=== PATIENT | female | born 1990 | race African-American/Black ===

== ENCOUNTER 2016-12-03 12:48 | Inpatient (IN) ==
[2016-12-03] MEDS ORDERED: SODIUM CHLORIDE 0.9% 1,000 ML IV STA (14:28)
[2016-12-03] MEDS ORDERED: ONDANSETRON 4 MG/2 ML VIAL IV STA (14:28)
--- NOTE | 2016-12-03 14:32 | Emergency Department Note ---
Arrival - Arrival Chief Complaint: Abdominal / Flank Pain Stated Complaint: nausea,stomach pain,back pain,third visit to ER ED Nursing Triage Note: pt to triage via [facility] with c/o having abd pain with n/v. pt states onset on 11/23/2016. pt was seen here on 11/26/16 and was given prescriptions for pain and then went to [facility] on 11/[facility]/16 and was prescriptions for nausea and some others. pt states she was told she was constipated. Mode of Arrival: Wheelchair Time Seen by Provider: 12/03/16 14:20 - History of Present Illness HPI Narrative: Patient presents to the ER today with complaints of upper left quadrant abdominal pain, nausea, and vomiting. She was seen here on 11/26 and was told she was constipated. She was seen at [facility] on 11/29 for the same thing. She states she has tried everything over the counter and has had BMs but the pain has not gone away. She states she is unable to anything down and now she is dizzy when she stands up. She denies fever. She states she does smoke and drink ETOH. PCP- none Allergies- PCN PMHx- none Date of Last Menstrual Period: 11/23/2016 Allergies/Adverse Reactions: Allergies Allergy/AdvReac Type Severity Reaction Status Date / Time Penicillins Allergy HIVES Verified 12/03/16 12:55 Home Medications: Home Medications Medication Instructions Recorded Confirmed Type Sulfameth/Trimeth 800-160 Tab 1 tablet PO BID #14 tablet 11/26/16 Rx [Bactrim DS Tab] traMADol TAB [Ultram] 50 mg PO Q6H PRN #20 tablet 11/26/16 Rx Review of System - Review of System 12 point system: reviewed and no additional remarkable complaints except as stated - Review of System Constitutional: Absent: chills, fever Respiratory: Absent: cough Cardiovascular: Absent: chest pain Gastrointestinal: Present: abdominal pain (left upper quadrant), nausea, vomiting (3 times today ) Medical,Surgical,& Family Hx - Social History Smoking Status: Current every day smoker Frequency of Alcohol Use: None Type of Drug Use: None Exam Physical Examination: General General appearance: 26-year-old black female is alert and in no apparent distress - Head Head exam: Present: atraumatic, normocephalic, normal inspection - Eye Eye exam: Present: normal appearance, PERRL, EOMI - ENT ENT exam: Present: mucous membranes tacky - Neck Neck exam: Present: normal inspection, full ROM, trachea midline - Chest Chest inspection: Present: normal inspection, symmetric chest wall rise - Respiratory Respiratory exam: Present: normal lung sounds bilaterally - Cardiovascular Cardiovascular exam: Present: regular rate, normal rhythm, normal heart sounds - Abdominal Exam Abdominal exam: Present: soft, normal bowel sounds, tender to left upper quadrant and left flank, no masses felt - Rectal Exam Rectal exam: Present: deferred - Extremities Exam Extremities exam: Present: normal inspection, full ROM, normal capillary refill - Back Exam Back exam: Present: normal inspection, full ROM - Neurological Exam Neurological exam: Present: alert, oriented X3, CN II-XII intact - Psychiatric Psychiatric exam: Present: normal affect, normal mood - Skin Skin exam: Present: warm, dry, intact, normal color, Vital Signs: Vital Signs Temperature 97.6 F 12/04/16 11:38 Pulse Rate 96 H 12/04/16 11:38 Respiratory Rate 18 12/04/16 11:38 Blood Pressure 135/78 12/04/16 11:38 O2 Sat by Pulse Oximetry 100 12/04/16 11:38 Course - Reevaluation(s) Time: 17:17 (Lab and CT results reviewd with Dr. Deng who states it looks viral in nature and he thinks this patient is okay to go home on antibiotics ( for UTI) and nausea medication. Patient is refusing discharge, she states she is still nauseated and does not feel any better. We discussed some treatment options and she agreed to try the GI cocktail and protonix to see if it would help. ) Time: 18:01 (Patient states she is still nauseous, hospitalist consulted) Time: 18:15 (Hospitalist at bedside and states she will admit the patient) Results - Labs CBC & BMP: 12/04/16 04:43 12/04/16 04:43 Lab Results: I have reviewed the patients labs Labs: Laboratory Tests 12/03/16 14:36 WBC 15.2 H RBC 5.40 Hgb 15.7 Hct 44.5 MCV 82.4 L MCH 29 MCHC 35.3 RDW 11.9 Plt Count 298 MPV 12.3 H Lymph % (Auto) 16.5 L Neut # (Auto) 11.0 H Faulk # (Auto) 1.5 H Laboratory Tests 12/03/16 12/03/16 14:36 14:36 Sodium 135 L Potassium 3.4 L Chloride 99 Carbon Dioxide 27 Anion Gap 12.4 BUN 11 Creatinine 1.10 H GFR Calculation 87 BUN/Creatinine Ratio 10.00 Glucose 104 Calculated Osmolality 268.1 L Calcium 9.7 Total Bilirubin 1.20 H AST 31 ALT 39 Alkaline Phosphatase 127 H Total Protein 9.6 H Albumin 4.2 Globulin 5.4 H Albumin/Globulin Ratio 0.7 L Amylase 102 Lipase 407.0 H Laboratory Tests 12/03/16 12/03/16 14:29 14:29 Urine Color Yellow Urine Appearance Clear Urine pH 6.0 Ur Specific Romney 1.016 Urine Protein 100 Urine Glucose (UA) 50 Urine Ketones Negative Urine Blood Large Urine Nitrate Negative Urine Bilirubin Negative Urine Urobilinogen 2.0 H Urine Leukocytes Trace Urine RBC 25 Urine WBC 5 Ur Squamous Epith Cells Occasional Urine Mucus Occasional Ur Culture Indicated? Not indicated Urine Test Negative Laboratory Tests 12/03/16 14:36 Infectious Faulk Assay Negative - Impressions Ordering Physician: Carolina Sparrow NP Date of Service: 12/03/16 Procedure(s): CT abdomen pelvis w con Accession Number(s): [id number] cc: Carolina Sparrow PERSONNEL PLACEMENT SPECIALIST~ Referring physician: Carolina Sparrow NP EXAM: CT abdomen and pelvis with contrast DATE: 12/03/2016 COMPARISON: None REASON: Upper abdominal pain, nausea and vomiting TECHNIQUE: Axial images of the abdomen and pelvis were obtained after administration of 100 cc of Omnipaque 350 IV contrast. Oral contrast was also administered. Coronal and sagittal reformatted images were also provided. Total DLP is 620.10 mGy*cm. FINDINGS: No acute findings at the visualized lung bases. Fatty infiltration of the liver which is normal in size with no masses, dilated ducts or calcified gallstones. The spleen is enlarged with a splenic index of 708. The pancreas, adrenal glands, and kidneys have an unremarkable appearance. The abdominal aorta is normal in size with no adjacent adenopathy. No dilatation of the small bowel. No evidence of diverticulitis, appendicitis, free fluid, or free air. Small cysts/follicles in the ovaries with the largest measuring 15 mm on the left. IMPRESSION: Fatty infiltration of the liver. Minimal splenomegaly with a splenic index of 708. No evidence of appendicitis. Small cysts/follicles in the ovaries with the largest measuring 15 mm on the left. The CT exam was performed using one or more of the following dose reduction techniques: Automated exposure control and adjustment of the mA and/or kV according to patient size. PROCEDURE INTERPRETED AT [facility] [place] DEPARTMENT OF RADIOLOGY Final Report Signed by: Dr. Kathryn Duff - Diagnostic Findings Procedure: CT Abdomen and Pelvis: report reviewed by me, image reviewed by me ( See Impression ) Disposition Clinical Impression: UTI (urinary tract infection), Nausea & vomiting, Dehydration, Abdominal pain, Splenomegaly Case discussed with: patient, patient's family Disposition: Still a Patient Condition: Stable Time of Disposition: 16:56
[2016-12-03 14:52] LABS: Apearance,Urine CLEAR (Clear); Bilirubin,Urine Negative (Negative); Blood, Urine Large mg/dL (Negative); Glucose,Urine (UA) 50 mg/dL (Negative); Ketones,Urine Negative (Negative); Mucus,Urine Occasional /LPF (Occasional); Nitrite,Urine Negative (Negative); Protein,Urine 100 MG/DL; RBC,Urine 25 /HPF (0-4); Squamous Epithelial Cell,Urine Occasional /HPF (0-10); Urine Color Yellow (Yellow); Urine Specific Gravity 1.016 (1.001-1.035); WBC,Urine 5 /HPF (0-6)
[2016-12-03 14:52] LABS: Basophils # 0.1 10*3/uL (0.0-0.2); Basophils % 0.3 % (0.0-0.8); Eosinophils # 0.1 10*3/uL (0.0-0.87); Eosinophils % 0.9 % (0.00-10.9); Hematocrit 44.5 VOL% (35.7-47.0); Hemoglobin 15.7 GM/DL (12.0-16.0); Immature Granulocytes % 0.3 %; Immature Granulocytes Absolute 0.05 #; Lymphocytes # 2.5 10*3/uL (1.4-4.0); Lymphocytes % 16.5 % (21.3-54.2); Mean Corpuscular HGB Conc 35.3 GM/DL (32-36); Mean Corpuscular Hemoglobin 29 PG (27-34); Mean Corpuscular Volume 82.4 FL (87-102); Mean Platelet Volume 12.3 FL (9.6-12.0); Monocytes # 1.5 10*3/uL (0.11-0.8); Monocytes % 9.8 % (1.7-12.7); Neutrophils % 72.2 % (38.7-73.9); Platelet Count 298 T/CUMM (130-400); Red Cell Distribution Width 11.9 % (9.3-17.3); White Blood Count 15.2 T/CUMM (4-12)
[2016-12-03 15:15] LABS: Albumin 4.2 G/DL (3.4-5.0); Bilirubin,Total 1.2 MG/DL (0.2-1.0); Calcium 9.7 MG/DL (8.5-10.1); Osmolality,Calculated 268.1 MOS/KG (273-304); Potassium 3.4 MMOL/L (3.5-5.1); Total Protein 9.6 G/DL (6.4-8.3)
--- NOTE | 2016-12-03 16:36 | CT Report ---
Referring physician: Carolina Sparrow NP EXAM: CT abdomen and pelvis with contrast DATE: 12/03/2016 COMPARISON: None REASON: Upper abdominal pain, nausea and vomiting TECHNIQUE: Axial images of the abdomen and pelvis were obtained after administration of 100 cc of Omnipaque 350 IV contrast. Oral contrast was also administered. Coronal and sagittal reformatted images were also provided. Total DLP is 620.10 mGy*cm. FINDINGS: No acute findings at the visualized lung bases. Fatty infiltration of the liver which is normal in size with no masses, dilated ducts or calcified gallstones. The spleen is enlarged with a splenic index of 708. The pancreas, adrenal glands, and kidneys have an unremarkable appearance. The abdominal aorta is normal in size with no adjacent adenopathy. No dilatation of the small bowel. No evidence of diverticulitis, appendicitis, free fluid, or free air. Small cysts/follicles in the ovaries with the largest measuring 15 mm on the left. IMPRESSION: Fatty infiltration of the liver. Minimal splenomegaly with a splenic index of 708. No evidence of appendicitis. Small cysts/follicles in the ovaries with the largest measuring 15 mm on the left. The CT exam was performed using one or more of the following dose reduction techniques: Automated exposure control and adjustment of the mA and/or kV according to patient size. PROCEDURE INTERPRETED AT [facility] DEPARTMENT OF RADIOLOGY Final Report Signed by: Dr. aKthryn Duff
[2016-12-03] MEDS ORDERED: PROMETHAZINE 25 MG/1 ML VIAL IM STA (16:52)
[2016-12-03] MEDS ORDERED: PANTOPRAZOLE 40 MG VIAL IV STA (17:16)
[2016-12-03] MEDS ORDERED: ALUM/MAG/SIMETH/LIDO VISC 1:1 30 ML BOTTLE PO STA (17:16)
[2016-12-03] MEDS ORDERED: PANTOPRAZOLE 40 MG VIAL IV ONE (17:20)
[2016-12-03] MEDS ORDERED: PROMETHAZINE 25 MG/1 ML VIAL ONE (17:21)
[2016-12-03] MEDS ORDERED: ALUM/MAG/SIMETH/LIDO VISC 1:1 30 ML BOTTLE PO ONE (17:21)
[2016-12-03] MEDS ORDERED: SODIUM CHLORIDE 0.9% 1,000 ML IV ONE (18:31)
--- NOTE | 2016-12-03 18:41 | Hospitalist History & Physical ---
Assessment and Plan (1) Nausea & vomiting Status: Acute Assessment and plan: Urine test, urine drug screen, nausea and vomiting most likely secondary to mild pancreatitis and viral illness. Repeat lipase in a.m. Monospot was negative. Current Visit: Yes (2) UTI (urinary tract infection) Status: Acute Assessment and plan: May have a partially treated UTI. Patient was given Bactrim but was only able to take a few doses due to nausea and vomiting. Will use Rocephin IV. Aware of penicillin allergy the chance of cross reaction is very low. Current Visit: No (3) Dehydration Status: Acute Assessment and plan: Normal saline at 200 mL's per hour Current Visit: Yes (4) Splenomegaly Status: Acute Assessment and plan: Most likely due to viral illness. Avoid contact sports for 6 weeks Current Visit: Yes (5) Leukocytosis Status: Acute Assessment and plan: Leukocytosis most likely secondary to viral illness and mild pancreatitis. Blood cultures 2, will get chest x-ray for completeness. Current Visit: Yes (6) Elevated bilirubin Status: Acute Assessment and plan: We will get direct bili. Did schedule ultrasound in a.m. to better examine the gallbladder. Current Visit: Yes (7) Hypokalemia Status: Acute Assessment and plan: We will replace IV Current Visit: Yes (8) Fatty liver Status: Acute Assessment and plan: Encouraged her to lose weight once this acute illness has passed. Current Visit: Yes History of Present Illness Chief complaint: Nausea vomiting History of present illness: Ms. Delatorre is a 26 year old female with a history of anemia and depression presents to the emergency room with complaints of nausea and vomiting for the past week and a half. Patient is to another woman. She reports having chills with nausea and vomiting that has persisted for a total week and a half. She denies any sick contact. She has been hardly able to keep anything down. She has been to the emergency room including over to [facility] multiple times she has been given nausea medicine but goes home and continue is having vomiting. She was told that she was constipated and was given a laxative. Patient is having left upper quadrant abdominal pain and some epigastric tenderness with palpation. CT of her abdomen shows fatty liver, enlarged spleen but no gallstones or dilated common bile duct. Her bilirubin is mildly elevated at 1.2. She reports being on her period which explains the RBCs in her urine. She has been recently treated with Bactrim for UTI which most likely just worsened her nausea and vomiting. She usually has heavy menses and her periods only last for 4 days but currently has lasted for over a week but has lightened each day. Home Medications Medication Instructions Recorded Confirmed Type Sulfameth/Trimeth 800-160 Tab 1 tablet PO BID #14 tablet 11/26/16 Rx [Bactrim DS Tab] traMADol TAB [Ultram] 50 mg PO Q6H PRN #20 tablet 11/26/16 Rx Allergies Allergy/AdvReac Type Severity Reaction Status Date / Time Penicillins Allergy HIVES Verified 12/03/16 12:55 Medical,Surgical,& Family Hx - Medical History Psychological: History of: Depression Hematology: History of: Anemia - Surgical History Additional Surgical History: none - Family History Family History: Reports;: Family Heart Disease Denies;: Family Cancer, Family Diabetes, Family Stroke - Social History Smoking Status: Current every day smoker Frequency of Alcohol Use: None Type of Drug Use: None Marital Status: Life Partner Lives With:: Significant Other Functional capacity: independent ambulation - Constitutional Constitutional: Present: chills. Absent: fever(s), headache(s) - EENT Eyes: Absent: blurry vision, diplopia Ears: Absent: decreased hearing, ear discharge Nose, mouth and throat: Absent: headache(s), sore throat - Cardiovascular Cardiovascular: Absent: chest pain at rest, dyspnea, dyspnea on exertion, edema - Gastrointestinal Gastrointestinal: Present: nausea, vomiting. Absent: constipation, diarrhea - Genitourinary Genitourinary: Present: difficulty urinating, dysuria. Absent: hematuria - Neurological Neurological: Absent: focal weakness, headache(s), syncope - Psychiatric Psychiatric: Present: depression. Absent: anxiety - Endocrine Endocrine: Present: cold intolerance, fatigue. Absent: heat intolerance - Hematologic/Lymphatic Hematologic/Lymphatic: Absent: easy bleeding, easy bruising Exam - Constitutional Vitals: Period Temp Pulse Resp BP Sys/Hunter Pulse Ox Last 24 Hr 98.6 F-98.6 F 97-108 18-20 122-159/88-110 97 General appearance: normal weight, no acute distress - Head Head exam: Present: normal inspection, normocephalic - Eye Eye exam: Present: EOMI. Absent: scleral icterus Pupils: Present: FRANCESCO, normal accommodation - ENT ENT exam: Present: normal exam, normal external ear exam - Neck Neck exam: Absent: lymphadenopathy, thyromegaly - Respiratory Respiratory exam: Present: clear to auscultation bilaterally. Absent: wheezes - Cardiovascular Cardiovascular exam: Present: regular rate and rhythm. Absent: systolic murmur - GI/Abdominal GI/Abdominal exam: Present: normal bowel sounds, tenderness, soft - Extremities Exam Extremities exam: Present: normal inspection, normal capillary refill - Neurological Exam Neurological exam: Present: alert, oriented X3, CN II-XII intact, reflexes normal. Absent: motor sensory deficit - Psychiatric Psychiatric exam: Present: normal affect, normal mood - Skin Skin exam: Present: normal color, warm Results - Labs CBC & BMP: 12/03/16 14:36 12/03/16 14:36 - Diagnostic Findings Procedure: CT Abdomen and Pelvis: report reviewed by me (Fatty infiltration of liver and enlarged spleen)
[2016-12-03] MEDS ORDERED: PROMETHAZINE 25 MG/1 ML VIAL IM PRN (19:06)
[2016-12-03] MEDS ORDERED: ZALEPLON 5 MG CAPSULE PO PRN (19:06)
--- NOTE | 2016-12-03 19:24 | XRay Report ---
Portable chest Date: 12/03/2016 Clinical history: Shortness of breath Comparison: None Technique: Portable AP sitting chest Findings: The heart is normal in size. The lungs are clear with unremarkable mediastinum and osseous structures. Impression: No acute cardiopulmonary pathology identified. PROCEDURE INTERPRETED AT [facility] DEPARTMENT OF RADIOLOGY Final Report Signed by: Dr. Kathryn Duff
[2016-12-03 20:01] LABS: Barbiturates Screen,Urine Negative (Negative); Benzodiazepines Screen,Urine Negative (Negative); Cannabinoid Screen,Urine Positive (Negative); Opiate Screen,Urine Negative (Negative); Phencyclidine Screen,Urine Negative (Negative)
[2016-12-03] MEDS: ONDANSETRON 4 MG/2 ML VIAL IV PRN (20:23)
[2016-12-03] MEDS: FAMOTIDINE 20 MG/2 ML VIAL IV SCH (20:24)
[2016-12-03] MEDS: POTASSIUM CHLORIDE RIDER 10 MEQ in PREMIX 1 EACH IV SCH ×2 (20:55→23:31)
[2016-12-03] MEDS: SODIUM CHLORIDE 0.9% 1,000 ML IV SCH (20:55)
[2016-12-03 20:58] LABS: Bilirubin,Direct 0.3 MG/DL (0.0-0.20); Free T4 (Free Thyroxine) 1.99 NG/DL (0.76-1.46); Magnesium 2.2 MG/DL (1.8-2.4); Thyroid Stimulating Hormone 1.09 uIU/ml (0.358-3.74)
[2016-12-03 21:23] LABS: Hepatitis A Ab IgM Quant 0.14 Index; Hepatitis A Ab IgM Result Negative (Negative); Hepatitis B Core IgM Quant 0.05 Index; Hepatitis B Core IgM Result Negative (Negative); Hepatitis B Surface Ag Result Negative (Negative); Hepatitis C Virus Ab Quant 0.19 Index; Hepatitis C Virus Ab Result Negative (Negative)
[2016-12-03] MEDS: ACETAMINOPHEN 325 MG TABLET PO PRN (23:41)
[2016-12-04] MEDS: cefTRIAXone 1,000 MG in SODIUM CHLORIDE 0.9% 100 ML IV SCH ×2 (00:41→20:57)
[2016-12-04] MEDS: POTASSIUM CHLORIDE RIDER 10 MEQ in PREMIX 1 EACH IV SCH ×3 (01:27→02:57)
[2016-12-04] MEDS: SODIUM CHLORIDE 0.9% 1,000 ML IV SCH ×3 (02:59→11:05)
[2016-12-04 04:55] LABS: Apearance,Urine CLEAR (Clear); Bilirubin,Urine Negative (Negative); Blood, Urine Moderate mg/dL (Negative); Glucose,Urine (UA) Negative (Negative); Ketones,Urine Negative (Negative); Nitrite,Urine Negative (Negative); Protein,Urine Negative; RBC,Urine <1 /HPF (0-4); Squamous Epithelial Cell,Urine Occasional /HPF (0-10); Urine Color Yellow (Yellow); Urine Specific Gravity 1.027 (1.001-1.035); Urine Urobilinogen < 2.0 EU/DL (0.2-1.0); WBC,Urine 3 /HPF (0-6)
[2016-12-04 05:26] LABS: Basophils % 0.3 % (0.0-0.8); Eosinophils # 0.2 10*3/uL (0.0-0.87); Eosinophils % 1.8 % (0.00-10.9); Hematocrit 35.6 VOL% (35.7-47.0); Hemoglobin 12.4 GM/DL (12.0-16.0); Immature Granulocytes % 0.3 %; Immature Granulocytes Absolute 0.03 #; Lymphocytes # 2.1 10*3/uL (1.4-4.0); Lymphocytes % 20.9 % (21.3-54.2); Mean Corpuscular HGB Conc 34.8 GM/DL (32-36); Mean Corpuscular Hemoglobin 29 PG (27-34); Mean Corpuscular Volume 83.4 FL (87-102); Mean Platelet Volume 12.6 FL (9.6-12.0); Monocytes % 10.2 % (1.7-12.7); Neutrophils # 6.7 10*3/uL (1.4-7.4); Neutrophils % 66.5 % (38.7-73.9); Platelet Count 231 T/CUMM (130-400); Red Blood Count 4.27 MC/CUMM (3.8-5.5); Red Cell Distribution Width 11.9 % (9.3-17.3); White Blood Count 10.1 T/CUMM (4-12)
[2016-12-04] MEDS: ACETAMINOPHEN 325 MG TABLET PO PRN ×4 (05:28→22:35)
[2016-12-04 06:01] LABS: Albumin 3.4 G/DL (3.4-5.0); Bilirubin,Total 0.9 MG/DL (0.2-1.0); Calcium 8.5 MG/DL (8.5-10.1); Osmolality,Calculated 274.5 MOS/KG (273-304); Risk Ratio 7.36; VLDL CHOLESTEROL 28.4 MG/DL
[2016-12-04] MEDS: FAMOTIDINE 20 MG/2 ML VIAL IV SCH ×2 (06:21→19:20)
[2016-12-04] MEDS: SODIUM CHLORIDE 0.45% 1,000 ML IV SCH ×2 (11:05→19:26)
--- NOTE | 2016-12-04 11:40 | Hospitalist Progress Note ---
Assessment and Plan (1) Nausea & vomiting Status: Acute Assessment and plan: better today, cont hydration but decrease IVF to 125 and change to 1/2 ns, still need results of GB US Current Visit: Yes (2) UTI (urinary tract infection) Status: Inactive Assessment and plan: cont rocephin Current Visit: No (3) Dehydration Status: Acute Assessment and plan: Resolved switch to half-normal saline 125 Current Visit: Yes (4) Splenomegaly Status: Acute Assessment and plan: Most likely due to viral illness. Avoid contact sports for 6 weeks Current Visit: Yes (5) Leukocytosis Status: Acute Assessment and plan: Resolved Current Visit: Yes (6) Elevated bilirubin Status: Acute Assessment and plan: Her direct bili is mildly elevated waiting for results of gallbladder ultrasound Current Visit: Yes (7) Hypokalemia Status: Acute Assessment and plan: Resolved Current Visit: Yes (8) Fatty liver Status: Acute Assessment and plan: Encouraged her to lose weight once this acute illness has passed. Current Visit: Yes Hospitalist: Subjective Interval history: Patient is feeling better today. She would like to try eating a little bit more today. She is still having a little bit of nausea but feels 100% better with the fluids and nausea medicine. Her white count has returned to normal and her electrolytes have returned to normal. Exam - Constitutional Vitals: Period Temp Pulse Resp BP Sys/Hunter Pulse Ox Last 24 Hr 97.7 F-99.6 F 64-108 16-20 122-160/88-110 97-100 Exam: Heart Rate-[RRR] Lungs-[CTAB] GI-[+bs soft, NT] Ext-[no edema] Neuro [Motor 5/5], [alert and oriented times 3] psych [normal mood and affect] General [no acute distress] Results - Labs CBC & BMP: 12/04/16 04:43 12/04/16 04:43 Lab Results: I have reviewed the past 24 hour labs - Diagnostic Findings Procedure: Ultrasound: report reviewed by me (study done but pending )
--- NOTE | 2016-12-04 12:05 | Ultrasound Report ---
US abdomen limited Indication: Nausea. ULTRASOUND ABDOMEN, limited Comparison: None Findings: Liver: No focal mass. Smooth contour and normal size. Diffusely increased echogenicity. Gallbladder: Unremarkable Common bile duct: 2 mm Pancreas: Unremarkable Right kidney: 10.5 cm length. No mass, cyst, calcification or obstruction Impression: No acute intraabdominal pathology. Increased echogenicity of liver, likely hepatic steatosis. PROCEDURE INTERPRETED AT [facility] DEPARTMENT OF RADIOLOGY Final Report Signed by: Srinivas Garner M.D.
[2016-12-04] MEDS: ONDANSETRON 4 MG/2 ML VIAL IV PRN ×3 (12:23→22:35)
[2016-12-05 05:40] LABS: Basophils % 0.3 % (0.0-0.8); Eosinophils # 0.2 10*3/uL (0.0-0.87); Eosinophils % 2.4 % (0.00-10.9); Hematocrit 32.7 VOL% (35.7-47.0); Hemoglobin 11.4 GM/DL (12.0-16.0); Immature Granulocytes % 0.3 %; Immature Granulocytes Absolute 0.03 #; Lymphocytes # 2.1 10*3/uL (1.4-4.0); Lymphocytes % 21.7 % (21.3-54.2); Mean Corpuscular HGB Conc 34.9 GM/DL (32-36); Mean Corpuscular Hemoglobin 29 PG (27-34); Mean Corpuscular Volume 84.1 FL (87-102); Mean Platelet Volume 12.4 FL (9.6-12.0); Monocytes # 0.7 10*3/uL (0.11-0.8); Monocytes % 7.7 % (1.7-12.7); Neutrophils # 6.4 10*3/uL (1.4-7.4); Neutrophils % 67.6 % (38.7-73.9); Platelet Count 199 T/CUMM (130-400); Red Blood Count 3.89 MC/CUMM (3.8-5.5); Red Cell Distribution Width 11.8 % (9.3-17.3); White Blood Count 9.5 T/CUMM (4-12)
[2016-12-05 06:15] LABS: Bilirubin,Total 0.8 MG/DL (0.2-1.0); Calcium 8.3 MG/DL (8.5-10.1); Osmolality,Calculated 278.3 MOS/KG (273-304); Potassium 3.8 MMOL/L (3.5-5.1); Total Protein 6.3 G/DL (6.4-8.3)
[2016-12-05] MEDS: ACETAMINOPHEN 325 MG TABLET PO PRN (06:35)
[2016-12-05] MEDS: SODIUM CHLORIDE 0.45% 1,000 ML IV SCH (06:37)
[2016-12-05] MEDS: FAMOTIDINE 20 MG/2 ML VIAL IV SCH (06:47)
[2016-12-05] MEDS: ONDANSETRON 4 MG/2 ML VIAL IV PRN (07:35)
[2016-12-05] MEDS ORDERED: MORPHINE 2 MG/1 ML SYRINGE IV PRN (08:28)
[2016-12-05] MEDS: amLODIPine 5 MG TABLET PO SCH (08:54)
--- NOTE | 2016-12-05 12:00 | Gastrointestinal Consult Note ---
Assessment and Plan (1) Left upper quadrant pain Status: Acute Assessment and plan: This patient has had nausea/vomiting/leukocytosis which has been present likely over the last 2 weeks of unclear etiology. She has not been able tolerate antibiotics including Bactrim and Cipro likely due to nausea and vomiting associated with an underlying disorder. I am not sure that she has had specific reactions with these medications other than not being able to keep them in her stomach long enough for them to work. She is now getting IV Rocephin and this appears to be improving her white blood cell count. I suspect that she has some sort of systemic infection that has affected her spleen and produced enough intra-abdominal swelling that her lipase is slightly elevated as well. CT scan done recently does not see involvement of the pancreas and therefore the elevated lipase level is likely secondary to an intra -abdominal inflammatory process, likely bacterial. I am fairly sure that upper and lower endoscopy are not going to add any additional information at this point and will hold off on scheduling these for the present time. She already seems to be improving with antibiotic therapy given parenterally. We will simply observe with you at this time and see how she does on the advancement of her diet currently off of clear liquids and on a more solid routine diet. Will check stool studies and follow CBC. Protonix once daily should help out with some of her acid reflux symptoms and abdominal pain. Current Visit: Yes (2) Leukocytosis Status: Acute Assessment and plan: White blood cell count is down from 15.2 initially down to 9.5 at this time with current IV therapy. I think you should start thinking about a oral substitute for the Rocephin that she may be able to go home with soon, perhaps Ceftin would be appropriate versus Suprax. Current Visit: Yes (3) Splenomegaly Status: Acute Assessment and plan: I suspect this is a manifestation once again the patient's underlying systemic illness, I am not sure that I would work this up further than noting that it is present, unless the patient does not defervesce from her current illness. Monospot was noted to be negative. No leukemic blood cells noted on peripheral CBC differential. Current Visit: Yes History of Present Illness Chief complaint: Nausea/vomiting/abdominal pain/mild diarrhea History of present illness: Ms. Delatorre is a 26 year old female who has a history of difficulties with nausea vomiting and abdominal pain which have been persistent over the last 2 weeks. She has been to our emergency room as well as the emergency room at [facility] and has been diagnosed on 2 separate occasions with constipation and urinary tract infections. She tried an initial course of antibiotics given to her at [facility] on 11/26/16 including Bactrim and tramadol. She was not able to tolerate the Bactrim due to nausea and vomiting side effects and presented next to [facility] where she was given a combination of Cipro and Phenergan but was not able tolerate these antibiotics either due to nausea vomiting with subjective fevers and chills and some dysuria. Her pain in the abdomen is described as dull and achy but radiating up into her left upper quadrant and through to her back on both sides. On presentation here at [facility] her white blood cell count was elevated at 15.2, with a predominance of neutrophils. She is having some nonspecific body aches particularly in her legs. Because she had been told that she had constipation issues she did take some laxative several days ago started having a few loose bowel movements which have not resulted in improvement in her pain. Aside from her white blood cell count she did have a slight elevation in her lipase level, initially 407 and this is dropped back to the normal range at 314, post hydration. The patient states that her menstrual periods have been longer and heavier than usual, typical for her would be 3-4 days in length and this is extended to 7 days in length with most of these heavy. This tends to explain her anemia at this time. Urinalysis does not indicate the patient had a urinary tract infection. CT scan seems to show a steatosis of the liver in addition to splenomegaly of unclear cause. Incidentally urine test is negative but drug screen is positive for cannabinoids. Hepatitis A, B, and C are all negative, the patient is monogamous in her homosexual relationship, neither she nor her partner has had any sick contact, she does not eat any unusual foods such as steak tartare, raw oysters or sushi. The patient does not have any unusual pets such as an [place] or reptiles nor does she drink well water. She has not had any recent foreign travel. She does not used IV drugs and has had no recent tattoos, although she does have multiple tattoos. Home Medications Medication Instructions Recorded Confirmed Type No Known Home Medications [No 12/05/16 12/05/16 History Known Home Medications] Allergies Allergy/AdvReac Type Severity Reaction Status Date / Time Penicillins Allergy HIVES Verified 12/03/16 12:55 Medical,Surgical,& Family Hx - Medical History Psychological: History of: Depression Gastrointestinal: History of: GI Problems (N/V) Hematology: History of: Anemia - Family History Family History: Reports;: Family Heart Disease Denies;: Family Cancer, Family Diabetes, Family Stroke - Social History Smoking Status: Current every day smoker Frequency of Alcohol Use: None Type of Drug Use: None Review of systems: Constitutional: Patient does complain of fever, chills, nausea, and vomiting Eyes: Denies dry eyes, and scleral icterus HENT: She has occasional headaches Cardiovascular: Denies acute chest pain and claudication Respiratory: Denies shortness of breath, wheezing, and difficulty breathing, denies cough Gastrointestinal: As noted in the HPI Genitourinary: She has had some recent dysuria but no hematuria Neurologic: Denies vision loss, and loss of sensation Musculoskeletal: Denies joint swelling, joint stiffness, and muscular weakness Psychiatric: She does complain of depression but no loulou symptoms Heme-Lymph: Denies easy bruising, lymph node enlargement or tenderness, night sweats, excessive bleeding Allergies-immunologic: Denies pruritus and rhinorrhea Exam - Constitutional Vitals: Period Temp Pulse Resp BP Sys/Hunter Pulse Ox Last 24 Hr 97.9 F-99.6 F 62-90 18-20 118-177/66-92 98-100 Exam: Constitutional: Well-developed, well-nourished, alert, and in no acute distress Head and face: Head: Normocephalic atraumatic Eyes: Conjunctiva without injection, no gross scleral icterus, pupils equal and round bilaterally Ears: Intact to conversation in both ears Nose: External appearance is normal, nares patent Mouth: Oral mucous membranes moist without erythema dentition noted to be without erosion Neck: Normal appearance, no masses or tenderness, trachea midline Thyroid: Gland midline and appropriate size for age Respiratory: Normal respiratory effort, clear to auscultation without wheezes, rhonchi or rales Cardiovascular: Regular rate and rhythm, normal S1, S2, the exam is without rubs, murmurs or gallops. Gastrointestinal: The abdomen is tender in the left upper quadrant but nowhere else in the remaining quadrants, normal active bowel sounds, tone normal without rigidity or guarding, no masses present, no hepatomegaly, no spleen tip felt. Rectal exam showed good tone no fissures or fistulas stool is present yellow and watery, guaiac negative. Lymphatic: Neck without adenopathy, axilla without lymphadenopathy present Musculoskeletal: Right and left lower extremities without evidence of edema Skin and subcutaneous tissue: No rashes or ulcerations noted, normal skin turgor, digits and nails without clubbing/cyanosis/deformities. Neurologic: The patient is grossly oriented to person place and time, cranial nerves show tongue movements are normal with normal tongue extrusion midline, light touch sensation is intact. Psychiatric: No hallucinations or delusions are present, does not appear depressed Results - Labs CBC & BMP: 12/05/16 04:16 12/05/16 04:16
--- NOTE | 2016-12-05 13:39 | Hospitalist Progress Note ---
Assessment and Plan (1) Nausea & vomiting Status: Acute Assessment and plan: Feels worse today. Last Dr. Salcedo to see. He feels that she has an underlying bacterial infection of some sort. Continue IV antibiotics. Current Visit: Yes (2) UTI (urinary tract infection) Status: Inactive Assessment and plan: cont rocephin for partially treated UTI. Current Visit: No (3) Dehydration Status: Acute Assessment and plan: Hep-Lock ivf Current Visit: Yes (4) Splenomegaly Status: Acute Assessment and plan: Due to illness. Current Visit: Yes (5) Leukocytosis Status: Acute Assessment and plan: Improved with IV antibiotics Current Visit: Yes (6) Elevated bilirubin Status: Acute Assessment and plan: Gallbladder ultrasound unremarkable Current Visit: Yes (7) Hypokalemia Status: Acute Assessment and plan: Resolved Current Visit: Yes (8) Fatty liver Status: Acute Assessment and plan: Encouraged her to lose weight once this acute illness has passed. Current Visit: Yes Hospitalist: Subjective Interval history: Patient still not feeling well today. We will hold off on discharge. I have asked Dr. Salcedo to see here since she is still having some abdominal discomfort. Appreciate his input. We will do stool studies as soon as she has another bowel movement. Exam - Constitutional Vitals: Period Temp Pulse Resp BP Sys/[place]unter Pulse Ox Last 24 Hr 97.9 F-99.6 F 62-90 18-20 118-177/66-92 98-100 Exam: Heart Rate-[RRR] Lungs-[CTAB] GI-[+bs epigastric and left upper quadrant tenderness] Ext-[no edema] Neuro [Motor 5/5], [alert and oriented times 3] psych [normal mood and affect] General [mild acute distress] Results - Labs CBC & BMP: 12/05/16 04:16 12/05/16 04:16 Lab Results: I have reviewed the past 24 hour labs Labs: Blood cultures 2 negative - Diagnostic Findings Procedure: Chest x-ray: report reviewed by me (Nothing acute), Ultrasound: report reviewed by me (Liver steatosis)
[2016-12-05] MEDS: cefTRIAXone 1,000 MG in SODIUM CHLORIDE 0.9% 100 ML IV SCH (20:24)
[2016-12-06 03:09] LABS: Basophils % 0.3 % (0.0-0.8); Eosinophils # 0.3 10*3/uL (0.0-0.87); Eosinophils % 3.2 % (0.00-10.9); Hematocrit 33.3 VOL% (35.7-47.0); Hemoglobin 11.7 GM/DL (12.0-16.0); Immature Granulocytes % 0.2 %; Immature Granulocytes Absolute 0.02 #; Lymphocytes # 2.4 10*3/uL (1.4-4.0); Lymphocytes % 23.2 % (21.3-54.2); Mean Corpuscular HGB Conc 35.1 GM/DL (32-36); Mean Corpuscular Hemoglobin 29 PG (27-34); Mean Corpuscular Volume 83.5 FL (87-102); Mean Platelet Volume 12.3 FL (9.6-12.0); Monocytes % 9.3 % (1.7-12.7); Neutrophils # 6.5 10*3/uL (1.4-7.4); Neutrophils % 63.8 % (38.7-73.9); Platelet Count 212 T/CUMM (130-400); Red Blood Count 3.99 MC/CUMM (3.8-5.5); Red Cell Distribution Width 11.7 % (9.3-17.3); White Blood Count 10.2 T/CUMM (4-12)
[2016-12-06 03:45] LABS: Albumin 3.4 G/DL (3.4-5.0); Bilirubin,Total 0.5 MG/DL (0.2-1.0); Calcium 8.6 MG/DL (8.5-10.1); Osmolality,Calculated 273.5 MOS/KG (273-304); Potassium 3.4 MMOL/L (3.5-5.1); Total Protein 6.9 G/DL (6.4-8.3)
[2016-12-06] MEDS ORDERED: PANTOPRAZOLE 40 MG VIAL IV SCH (09:00)
[2016-12-06] MEDS ORDERED: POTASSIUM CHLORIDE 20 MEQ TABLET PO ONE (09:01)
[2016-12-06] MEDS: amLODIPine 5 MG TABLET PO SCH (09:06)
[2016-12-06] MEDS: ONDANSETRON 4 MG/2 ML VIAL IV PRN (09:20)
[2016-12-06] MEDS ORDERED: DIPHENOXYLATE/ATROPINE 2.5-0.025 MG TABLET PO PRN (09:21)
--- NOTE | 2016-12-06 09:24 | Discharge Summary ---
<Chava Hernández - Last Filed: 12/06/16 08:47> Hospital Course - Hospital Course Hospital Course: Ms. Delatorre is a 26 year old female with a history of anemia and depression presented to the emergency room on 12/02/2016 with complaints of nausea and vomiting for the past week and a half. She reported having chills with nausea and vomiting that had persisted for a total week and a half. She was admitted to the hospital medicine service with nausea and vomiting, UTI, dehydration, splenomegaly, leukocytosis, elevated bilirubin, hypokalemia and fatty liver. The patient was started on IV fluids at 200 mls per hour, given Rocephin IV and observed. She responded appropriately and the fluids were decreased to 125 ml/ hr and changed to 1/2 NS. Ultrasound of the abdomen shows no acute intraabdominal process. GI was consulted to assist with the left upper quadrant pain. Stool studies ere negative for C. diff toxins, enteric pathogens and WBCs. Blood culture and urine culture wee both negative. The remainder of her hospital course was relatively uncomplicated affirms that this illness is likely due to viral illness and supportive therapy is all that is required at this time. She has reached maximum benefit from hospitalization and is stable for discharge. Given her splenomegaly, the patient has been instructed to avoid contact sports for 6 weeks. Any medication changes have been outlined in the discharge orders as provided by Dr. Colin. She should follow up with her PCP in 1-2 weeks. Patient seen and examined. Agree with above. Ultrasound shows no problems with her gallbladder. She does have fatty liver disease and does need to lose weight. Patient most likely has a bacterial illness of some etiology. Her blood cultures 2 are negative and urine culture was negative. She was already on antibiotics when she was admitted included both Bactrim and Cipro. We will stop her diarrhea knowing that is not infectious with Lomotil. I will have her follow-up with Dr. Salcedo in 2 weeks to make sure her illness has completely resolved. She needs to stop using marijuana. She will need to finish up 10 more days of Ceftin. I will also give him medications for pain around her spleen. Her Monospot was also negative. Discharged home as she is able to keep down full liquids. Patient's lipase was elevated with Dr. Salcedo thought it was just secondary to a bacterial process and does not believe she had pancreatitis. - Time spent with patient Time with patient DS: Greater than 30 minutes Discharge Plan - Discharge Data Disposition: Disch To Home/Self Care - Discharge Medications New Cefuroxime Tab [Ceftin] 500 mg PO BID #20 tablet Diphenoxylate/Atrop 2.5-0.025 [Lomotil Tab] 2 tablet PO Q4H PRN #20 tablet PRN Reason: Diarrhea HYDROcodone/ACETAMIN 7.5-325 [[place] 7.5-325] 1 tablet PO Q4H #20 tablet Promethazine Tab [Phenergan Tab] 25 mg PO Q4H #30 tablet amLODIPine [Norvasc] 5 mg PO DAILY #30 tablet - Follow Up or Referral Follow Up: dr cisco [Other] - 1 Week Harpal Salcedo MD [Physician] - 2 Weeks - Forms/Instructions Exam - Constitutional Vitals: Period Temp Pulse Resp BP Sys/Hunter Pulse Ox Last 24 Hr 97.7 F-98.5 F 58-83 16-20 119-177/64-87 99-100 Discharge Results Procedures and tests throughout hospitalization: Pending Orders 12/03/16 19:37 Blood Culture Stat 12/05/16 17:39 Stool Culture Routine Labs on day of discharge: Labs from last 24 hours 12/06/16 12/06/16 02:38 02:38 WBC 10.2 RBC 3.99 Hgb 11.7 L Hct 33.3 L MCV 83.5 L MCH 29 MCHC 35.1 RDW 11.7 Plt Count 212 MPV 12.3 H Neut % (Auto) 63.8 Lymph % (Auto) 23.2 [place] % (Auto) 9.3 Eos % (Auto) 3.2 Baso % (Auto) 0.3 Neut # (Auto) 6.5 Lymph # (Auto) 2.4 [place] # (Auto) 1.0 H Eos # (Auto) 0.3 Baso # (Auto) 0.0 Immature Gran % 0.2 Nucleated RBC % 0.0 Immature Gran # 0.02 Nucleated RBCs # 0.00 Immature Plt Fraction 0.0 Sodium 139 Potassium 3.4 L Chloride 104 Carbon Dioxide 30 Anion Gap 8.4 BUN 3 L Creatinine 0.70 GFR Calculation 150 BUN/Creatinine Ratio 4.00 L Glucose 101 Calculated Osmolality 273.5 Calcium 8.6 Total Bilirubin 0.50 AST 10 ALT 22 Alkaline Phosphatase 88 Total Protein 6.9 Albumin 3.4 Globulin 3.5 Albumin/Globulin Ratio 0.9 L Preliminary micro results at discharge 12/05/16 17:39 Stool Culture - Preliminary Stool No enteric pathogens at 12 hrs 12/03/16 19:37 Blood Culture - Preliminary Blood No growth at 1 day 12/03/16 19:37 Blood Culture - Preliminary Blood No growth at 1 day DS: Provider Date of admission: 12/03/16 18:06 Primary care physician: . No PCP Attending physician on admission: Srinivas Nagy MD Consults: 12/05/16 08:27 Consult to Physician [CONS] Routine Comment: pancreatitis, viral illness Consulting Provider: Harpal Salcedo Consulting Provider Notified: Yes When should Consulting Provider be notified: Now Person Notified: ivy garcia Date Notified: 12/05/16 Time Notified: 08:41 Discharging clinician: Chava ROMERO Expected date of discharge: 12/06/16 <Dayana Colin - Last Filed: 12/06/16 11:23> Hospital Course - Time spent with patient Time with patient DS: Greater than 30 minutes (45 minute) Diagnosis - Discharge Diagnosis (1) Nausea & vomiting Status: Acute (2) UTI (urinary tract infection) Status: Inactive (3) Dehydration Status: Acute (4) Splenomegaly Status: Acute (5) Leukocytosis Status: Acute (6) Elevated bilirubin Status: Acute (7) Hypokalemia Status: Acute (8) Fatty liver Status: Acute Discharge Plan - Discharge Data Condition at Discharge: Stable Discharge Diet: other (full liquids advance as tolerated. ) Activity: resume usual activities as tolerated Hygiene: no restrictions Weight Bearing at Discharge: full weight bearing - Forms/Instructions Additional Discharge Instructions: off work for five days. No more marijuana use as it will make her illness worse. No contact sports or trauma to the abdomen for 2 months Exam - Constitutional General appearance: normal weight, no acute distress - Respiratory Respiratory exam: Present: clear to auscultation bilaterally. Absent: rhonchi, wheezes - Cardiovascular Cardiovascular exam: Present: regular rate and rhythm. Absent: systolic murmur - GI/Abdominal GI/Abdominal exam: Present: normal bowel sounds, soft. Absent: tenderness - Extremities Exam Extremities exam: Present: normal inspection, normal capillary refill - Neurological Exam Neurological exam: Present: alert, oriented X3 - Skin Skin exam: Present: normal color, warm
[2016-12-06] MEDS ORDERED: ALUM/MAG/SIMETH/LIDO VISC 1:1 30 ML BOTTLE PO ONE (13:02)
[2016-12-06 13:07] VITALS: BP 121/68
== END 2016-12-06 13:40 | disposition home or self-care (01) | DRG 439 ==
LOC: N.ED 12:48 → SUATTDRO 18:06 → N.EDINP 18:06 → N.3E 18:54
PROVIDERS: ADMIT Internal Medicine; ATTEND Internal Medicine